=== PATIENT | male | born 1965 | race Caucasian/White ===

== ENCOUNTER 2021-03-18 08:49 | Emergency (ER) | payer MEDICAID, SELFPAY ==
[2021-03-18 08:54] VITALS: BP 107/72; PULSE 101; RESP 15; TEMP 36.8; O2SAT 96
--- NOTE | 2021-03-18 08:54 | ED.GENADUL_ITS ---
Discharge Plan Disposition Patient Disposition: HOME Condition: Stable Discharge Details Clinical Impression: Chest wall injury Primary Care Provider: Brenda,Local ED Provider: Gilberto Ma Home Meds and New Rx's Prescriptions: New lidocaine [Lidoderm] 5 % adhesive patch,medicated 1 patch topical DAILY Qty: 1 RF: 0 Discharge Instructions Instructions: Chest Wall Pain (ED) Additional Instructions: X-ray is unremarkable for obvious rib fracture or pneumothorax. Over-the-co unter Tylenol and/or Motrin as directed for discomfort. Lidoderm patches as directed. Cool and/or warm compresses every 2 hours for 20 minutes. Gentle stretching as tolerated. Be sure to use incentive spirometer as directed. Please watch for new or worsening symptoms and return to the ER for any concerns. I have placed you on the care management list, they should be contacting you to help you establish a local primary care provider. Medical Decision Making 55-year-old gentleman who denies any significant past sickle history presents fo r right lateral rib pain. He does not have a primary care provider, will be placed on the care management list to help expedite outpatient primary care. In triage his heart rate was 101 but during my evaluation his heart rate was 92. Blood pressure 107/72, O2 sats 96% on room air. Clinically he appears well, nontoxic, no respiratory distress. Anterior chest, abdomen, back all unremarkable. Given his injury, likely diagnosis of rib contusion and/or fracture. Given his presentation extremely small suspicion of pneumothorax and/or intra-abdominal process. X-ray of right ribs and chest obtained, reviewed by me and confirmed by radiology as no acute pulmonary findings. Unremarkable right ribs. Discussed x-ray with patient. He is aware that he is being placed on the care management list to help expedite outpatient primary care follow-up. Repeat blood pressure is 140/91, repeat pulse is 89. Patient appears well, nontoxic, no distress, speaks in full sentences. Discussed treatment options. Discussed importance of alternating between Tylenol and/or Motrin, gentle stretching, cool compresses, teaching with incentive spirometry was given. A single Lidoderm patch was applied here in the ER and I have written a prescription of the same for him. Patient is agreeable to this plan and has no additional questions or concerns upon discharge. HPI General Mode of arrival: ambulatory . Date/Time Provider Initiated Documentation: 03/18/21 08:54 . Limitations to Documentation: no limitations . Information obtained by: patient . HPI Narrative: This is a 55-year-old gentleman, denies any significant past medical history. He reports that he recently moved here from [facility] and has not established any primary care in the area. He does smoke cigarettes daily. He reports that last afternoon around 4 PM he was sitting on a stool, slipped rolling off to his right side. During the fall he struck his right lateral ribs on the edge of a safe. Patient reports moderate pain at rest, worse pain with movement, deep breathing, turning or bending. He denies any other injury. He denies striking his head, LOC, headache or neck pain. He denies any anterior chest pain, cough, shortness of breath abdominal pain, nausea, vomiting, change in bowel or bladder function. He denies any numbness, tingling, weakness. Pain does not radiate anywhere. He denies specifically any hematuria or incontinence. He has not taken any medication for his symptoms. Related Data Home Medications Medication Instructions Recorded Confirmed lidocaine [Lidoderm] 1 patch TOPICAL DAILY #1 ea 03/18/21 Previous Rx's Medication Instructions Recorded lidocaine [Lidoderm] 1 patch TOPICAL DAILY #1 ea 03/18/21 Allergies Allergy/AdvReac Type Severity Reaction Status Date / Time No Known Allergies Allergy Unverified 03/18/21 09:01 Review of Systems Constitutional Constitutional: Denies headache(s) Eyes Eyes: Denies change in vision ENT Ears, Nose, Mouth, and Throat: Denies headache(s) and Denies neck pain Cardiovascular Cardiovascular: Reports chest pain (Right lateral chest wall) and Denies dyspnea Respiratory Respiratory: Denies cough and Denies dyspnea Gastrointestinal Gastrointestinal: Denies abdominal pain, Denies nausea and Denies vomiting Genitourinary Genitourinary: Denies hematuria Musculoskeletal Musculoskeletal: Denies back pain, Denies neck pain, Denies numbness and Denies tingling Integumentary/Breasts Skin/Breast: Denies erythema Neurologic Neurologic: Denies headache(s), Denies numbness and Denies tingling [facility] Social History Smoking/Tobacco Use Status: Current every day Tobacco Type: cigarettes Smoking risk assessment performed?: Yes Drug use: Never Do you feel safe at home: Yes Do you feel safe in your relationship?: Yes Exam Const General: cooperative, healthy appearing, comfortable and no acute distress Orientation: alert, awake and oriented x3 HENMT Head: normal to inspection, normocephalic and atraumatic Eyes General: appearance normal, both eyes and all related structures Conjunctivae: conjunctivae normal Neck Neck: normal visual inspection, trachea midline, supple and nontender Chest Chest: normal inspection of the chest and tenderness Chest/axillae images: 1. Diffuse right lateral chest wall discomfort without any obvious crepitus or bony point tenderness. There is no ecchymosis, erythema, obvious deformity, break of the skin. Resp Effort & Inspection: normal respiratory effort and able to speak in complete sentences Auscultation: clear to auscultation bilaterally Cardio Rate: regular rate (92) Rhythm: regular rhythm GI Inspection: obesity Palpation: soft and nontender Back/Spine/Pelvis Back: no CVA tenderness and No back tenderness Skin General skin exam: no rashes or lesions noted Neuro General: patient alert, patient awake, moves all extremities and no focal motor deficits Cognition: normal cognition Speech: speech normal Gait: normal gait Motor: muscle tone normal throughout Sensory Exam: no sensory deficits noted Extrem General: normal to inspection and full ROM Psych Appearance: grossly normal Mental Status: mental status grossly normal
--- NOTE | 2021-03-18 09:15 | DI.RAD_ITS ---
Exam(s) XR RIBS RT W PA LAT CHEST EXAM: XR RIBS RT W PA LAT CHEST CLINICAL HISTORY: fall, R rib injury TECHNIQUE: 2D digital imaging was performed. COMPARISON: No exams were available for comparison FINDINGS: MEDIASTINUM: Normal. HEART: Normal. PULMONARY VASCULATURE: Normal. LUNGS: Clear. PLEURAL SPACE: No pleural effusion or pneumothorax. BONE:Normal. RIGHT RIBS: Normal. OTHER FINDINGS:There are surgical clips in the right upper quadrant of the abdomen. IMPRESSION: 1. No acute pulmonary findings. 2. Unremarkable right ribs. DATA REPOSITORY: RADIATION DOSE DELIVERED:
[2021-03-18] MEDS: Lidocaine 5% Patch 1 PATCH TP (10:44)
[2021-03-18 10:51] VITALS: BP 140/91; PULSE 89; RESP 20; TEMP 36.6; O2SAT 97
--- NOTE | 2021-03-18 10:53 | NUR.NOTE ---
Nursing Note: Referral given to Care Management to establish care/needs ongoing medication renewal with PCP. Shani Green
--- NOTE | 2021-03-20 13:57 | CMPROGNOTE_ITS ---
- If Service Date Differs Date of service: 03/20/21 Time of Service: 13:57 Care Management Progress Note Nick is seen in the ED for a chest wall injury. At the request of ED provider, CM coordinates a referral to ANTHONY Aguilera, of [facility], on-call provider, to assist Nick in obtaining a follow up appointment and in establishing care with a PCP.
== END 2021-03-18 10:51 | disposition home or self-care (01) ==
PROVIDERS: Emergency Provider Physician Assistant
DX: S29.8XXA Other specified injuries of thorax, initial encounter (principal); W22.8XXA Striking against or struck by other objects, initial encounter
CPT/HCPCS: 99283; 71046; 71100

== ENCOUNTER 2021-05-22 15:45 | Outpatient (REF) | payer MEDICAID, SELFPAY ==
[2021-05-22 16:30] LABS: Abs Immature Grans 0.02 10^3/uL (0.0-0.06); Absolute Basophil Count 0.03 10^3/uL (0.0-0.2); Absolute Eosinophil Count 0.26 10^3/uL (0.0-0.7); Absolute Lymphocyte Count 1.44 10^3/uL (1.2-3.4); Absolute Monocyte Count 0.37 10^3/uL (0.1-0.8); Absolute Neutrophil Count 2.95 10^3/uL (1.2-6.7); Basophils % 0.6; Eosinophils % 5.1; HCT 41.7 % (40.0-50.0); HGB 13.3 g/dL (13.5-17.5); Immature Grans % 0.4; Lymphocytes % 28.4; MCH 34.4 pg (27.0-33.0); MCHC 31.9 % (32.0-36.0); MCV 107.8 fL (80-95); MPV 13.7 fL (8.0-11.0); Monocytes % 7.3; Neutrophils % 58.2; Nucleated RBC 0 %; Platelet Count 133 10^3/uL (130-400); RBC 3.87 10^6/uL (4.36-5.78); RDW 12.5 % (11.8-14.1); RDW-SD 49.5 fL; WBC 5.07 10^3/uL (4.4-10.8)
[2021-05-22 16:47] LABS: Diff Comment RBC Morph Reviewed; Macrocytosis 1+
[2021-05-22 18:26] LABS: ALT 81 U/L (16-63); AST 42 U/L (15-37); Albumin 4.5 g/dL (3.4-5.0); Alkaline Phosphatase 65 U/L (46-116); Anion Gap 9.7 mmol/L (3-11); BUN 16 mg/dL (7-18); Bilirubin, Total 0.3 mg/dL (0.2-1.0); CO2 22.3 mmol/L (21.0-32.0); CREATININE 0.9 mg/dL (0.70-1.30); Calcium 9.8 mg/dL (8.5-10.1); Calculated LDL 69 mg/dL (<100); Chloride 104 mmol/L (98-107); Cholesterol 128 mg/dL (<200); Glucose 108 mg/dL (74-106); HDL Cholesterol 41 mg/dL (40-60); Potassium 4.2 mmol/L (3.5-5.1); Sodium 136 mmol/L (136-145); Total Protein 8.1 g/dL (6.4-8.2); Triglyceride 94 mg/dL (<150); Vitamin B12 228 pg/mL (193-986)
[2021-05-22 19:28] LABS: Bilirubin, Direct 0.2 mg/dL (0.0-0.2)
[2021-05-27 09:21] LABS: Methylmalonic Acid 0.23 nmol/mL (<=0.40)
== END 2021-05-22 15:46 | disposition home or self-care (01) ==
LOC: NCHCN 15:45
PROVIDERS: Visit Provider Physician Assistant
DX: G60.9 Hereditary and idiopathic neuropathy, unspecified (principal); E66.9 Obesity, unspecified; F10.20 Alcohol dependence, uncomplicated; F17.200 Nicotine dependence, unspecified, uncomplicated; K42.9 Umbilical hernia without obstruction or gangrene
CPT/HCPCS: 80048; 80061; 80076; 80186; 82607; 85025

== ENCOUNTER 2021-07-01 16:06 | Outpatient (REF) | payer MEDICAID, SELFPAY ==
[2021-07-01 20:40] LABS: FREE T4 0.58 ng/dL (0.76-1.46); TSH 8.48 uIU/mL (0.36-3.74)
== END 2021-07-01 16:07 | disposition home or self-care (01) ==
LOC: NCHCN 16:06
PROVIDERS: Visit Provider Physician Assistant
DX: E03.9 Hypothyroidism, unspecified (principal)
CPT/HCPCS: 84439; 84443

== ENCOUNTER 2021-07-14 02:02 | Outpatient (CLI) | payer MEDICAID, SELFPAY ==
--- NOTE | 2021-07-14 | DI.CTLCSR_ITS ---
Exam(s) CT CHEST LUNG CANCER SCREEN EXAM: CT CHEST LUNG CANCER SCREEN CLINICAL HISTORY: SCREENING FOR LUNG CA,CURRENT SMOKER,F17.200 TECHNIQUE: Imaging Protocol: Axial computed tomography images with coronal and sagittal reformatted images were created and reviewed COMPARISON: CR XR RIBS RT W PA LAT CHEST from 03/18/2021 CR XR RIBS RT W PA LAT CHEST from 03/18/2021 FINDINGS: Tracheobronchial tree: Patent where visualized. Mediastinum and Dia: No dominant adenopathy or fluid collection. Pulmonary parenchyma: No consolidation or dominant measurable mass. No architectural distortion. Lung Nodules: None. Pleura: No effusion or pneumothorax. Heart: The heart is not dilated. Mild coronary artery calcifications are seen. Aorta: Thoracic aorta non-dilated.Mild calcification Upper abdomen: Status post cholecystectomy. Bones: Unremarkable for age. Soft Tissues: Unremarkable. IMPRESSION: Normal low dose CT lung screening Lung RADS Cat 1 - Negative: No nodules and definitely benign nodules Lung-RADS 1.0 CATEGORIES: Category 0 - Prior chest CT exam(s) being located for comparison. Category 1 - Annual screening in 12 months. No nodules or definitely benign nodules. Category 2 - Annual screening in 12 months. Benign appearance. Nodules with low likelihood of becomin g active cancer. Category 3 - 6-month follow-up. Probably benign. Short-term follow-up suggested. Nodules with low lik elihood of becoming active cancer. Category 4A - 3-month follow-up and CT/PET if >8 mm in size. Suspicious finding. Findings which requi re additional testing. Category 4B - Findings which require additional testing and tissue sampling. Modifier S- Potentially clinically significant findings (non lung cancer) RADIATION DOSE DELIVERED: 76.37mGy.cm Total DLP CTDIvol DATA REPOSITORY: All CT scans at this facility are submitted to the National Radiology Data Registry (NRDR) Dose Index Registry (DIR) with the [employer] (ACR). RADIATION OPTIMIZATION: All CT scans at this facility use at least one of these dose optimization te chniques: automated exposure control; mA and/or kV adjustment per patient size (includes targeted exa ms where dose is matched to clinical indication); or iterative reconstruction.
== END 2021-07-14 02:22 ==
PROVIDERS: PCP Physician Assistant; Visit Provider Physician Assistant
DX: Z12.2 Encounter for screening for malignant neoplasm of respiratory organs (principal); F17.210 Nicotine dependence, cigarettes, uncomplicated
CPT/HCPCS: 71271

== ENCOUNTER 2021-10-29 11:56 | Outpatient (REF) | payer MEDICAID, SELFPAY ==
[2021-10-29 16:01] LABS: ALT 91 U/L (16-63); AST 40 U/L (15-37); Albumin 4.5 g/dL (3.4-5.0); Alkaline Phosphatase 51 U/L (46-116); Bilirubin, Direct 0.1 mg/dL (0.0-0.2); Bilirubin, Total 0.4 mg/dL (0.2-1.0); TSH 5.51 uIU/mL (0.36-3.74)
== END 2021-10-29 11:57 | disposition home or self-care (01) ==
LOC: NCHCN 11:56
PROVIDERS: PCP Physician Assistant; Visit Provider Physician Assistant
DX: F10.20 Alcohol dependence, uncomplicated (principal); E03.9 Hypothyroidism, unspecified
CPT/HCPCS: 80076; 84443

== ENCOUNTER 2022-06-30 12:38 | Emergency (ER) | payer MEDICAID, SELFPAY ==
[2022-06-30 12:54] VITALS: BP 135/74; PULSE 106; RESP 18; TEMP 36.8; O2SAT 97
[2022-06-30] MEDS: Buprenorphine/Naloxone 8 mg/2 mg FILM 1 EACH SL ×2 (13:21→14:10)
--- NOTE | 2022-06-30 14:04 | W.ED.GENAD ---
Discharge Plan Disposition Patient Disposition: HOME Condition: Stable Discharge Details Clinical Impression: Opiate withdrawal Primary Care Provider: Ross Larson ED Provider: Cinthya Crane Home Meds and New Rx's Prescriptions: New ondansetron HCl 4 mg tablet 4 mg PO Q8H Qty: 10 0RF Continued levothyroxine [Synthroid] 75 mcg tablet 75 mcg PO DAILY trazodone 50 mg tablet 50 mg PO QHS PRN varenicline 0.5 mg tablet 0.5 mg PO DAILY Rx Instructions: administer on days 1, 2, and 3 of therapy varenicline 1 mg tablet 1 mg PO BID Discharge Instructions Additional Instructions: You have an appointment with the Suboxone clinic tomorrow morning, please go to your appointment Do not drive after taking your Suboxone, you received a high dose You may take Zofran as needed for nausea Take ibuprofen and Tylenol for pain Do not use any oxycodone while taking this medication as I will put you into withdrawals if you are symptomatically improved Please return earlier should you have new or worsening complaints Referrals: Ross Larson [Primary Care Provider] - 1 day Discharge Data Discharge Date/Time-TO BE ENTERED AT DEPARTURE: 06/30/22 14:18 Medical Decision Making pt is feeling mild improvement after suboxone, administered two 8 mg doses in ED [facility] has set up appt for tomorrow for suboxone pt alert and oriented and feels comfortable with discharge home denies si/hi Medical Records Medical records reviewed: Yes I reviewed the patient's medical records. HPI General Date/Time Provider Initiated Documentation: 06/30/22 13:14. HPI Narrative: This 56-year-old male with history of alcohol dependence, polysubstance abuse presents with report of withdrawal from opiates. He states he takes approximately 300 mg of oxycodone daily. He advised that on the street reportedly. He denies any IV drug use or cocaine use. He denies any chest pain or shortness of breath. He denies any dizziness or weakness. He feels nauseous and has been having diarrhea. Denies any abdominal pain. Denies any IV drug abuse. His last dose of oxycodone was on Wednesday midday. He denies any suicidal or homicidal ideation. Related Data Home Medications Medication Instructions Recorded Confirmed levothyroxine 75 mcg tablet 75 mcg PO DAILY 11/06/21 06/30/22 (Synthroid) trazodone 50 mg tablet 50 mg PO QHS PRN 11/06/21 varenicline 0.5 mg tablet 0.5 mg PO DAILY 11/06/21 varenicline 1 mg tablet 1 mg PO BID 11/06/21 ondansetron HCl 4 mg tablet 4 mg PO Q8H #10 tabs 06/30/22 Previous Rx's Medication Instructions Recorded ondansetron HCl 4 mg tablet 4 mg PO Q8H #10 tabs 06/30/22 Allergies Allergy/AdvReac Type Severity Reaction Status Date / Time No Known Allergies Allergy Verified 06/30/22 12:58 General Stated Complaint: DrugWithdr/MAT SPENCER: 3 Review of Systems All systems reviewed & are unremarkable except as noted in HPI and below PFSH All Active Problems (Updated 06/30/22 @ 14:10 by ALMA Fuller) Opiate withdrawal (Acute) Obesity (Chronic) Peripheral neuropathy (Acute) Nicotine dependence (Acute) Alcohol dependence (Acute) Screening for colon cancer (Acute) Medical History (Updated 06/30/22 @ 14:10 by ALMA Fuller) Bursitis, knee Chest wall injury Fatty liver Hypothyroid Social History Smoking/Tobacco Use Status: Current every day Tobacco Type: cigarettes Smoking risk assessment performed?: Yes Alcohol Intake: former Drug use: Current Sobriety Substance use type: painkillers Details: pt was taking percocet 30s, 10-12 pills a day, stopped taking them 2 days ago. Do you feel safe at home: Yes Do you feel safe in your relationship?: Yes Exam Const General: cooperative, comfortable and no acute distress Eyes Pupils: PERRL Resp Effort & Inspection: normal respiratory effort Auscultation: clear to auscultation bilaterally Cardio Rate: regular rate Rhythm: regular rhythm GI Inspection: normal to inspection Skin General skin exam: no rashes or lesions noted Neuro General: patient alert and patient oriented x3 Psych Appearance: well kempt Thought Content: suicidality Course Vital Signs Vital signs: Vital Signs Temperature 36.8 C 06/30/22 12:54 Pulse 106 H 06/30/22 12:54 Respiratory Rate 18 06/30/22 12:54 Blood Pressure 135/74 06/30/22 12:54 Pulse Oximetry 97 06/30/22 12:54 Temperature 36.8 C 06/30/22 12:54 Pulse 106 H 06/30/22 12:54 Respiratory Rate 18 06/30/22 12:54 Respiratory Effort 06/30/22 12:59 Respiratory Pattern Normal 06/30/22 12:59 Blood Pressure 135/74 06/30/22 12:54 Pulse Oximetry 97 06/30/22 12:54
[2022-06-30 14:11] VITALS: BP 146/102; PULSE 85; RESP 16; TEMP 37.1; O2SAT 96
== END 2022-06-30 14:18 | disposition home or self-care (01) ==
PROVIDERS: Emergency Provider Physician Assistant; PCP Physician Assistant
DX: F11.23 Opioid dependence with withdrawal (principal); F17.210 Nicotine dependence, cigarettes, uncomplicated
CPT/HCPCS: 99283; 99284

== ENCOUNTER → 2022-08-19 02:26 | Outpatient (CLI) | payer MEDICAID, SELFPAY ==
--- NOTE | 2022-08-19 06:15 | DI.US_ITS ---
Exam(s) US ABDOMEN EXAM: US ABDOMEN CLINICAL HISTORY: elevated LFT/hx of ETOH abuse,fatty liver,k76.0,r79.89,obesity TECHNIQUE: Ultrasound abdomen performed using standard protocol. COMPARISON: No exams were available for comparison FINDINGS: ABDOMINAL AORTA AND IVC: Visualized portions normal caliber. PANCREAS: Normal where visualized. LIVER: The liver is of increased echogenicity suggestive of hepatic steatosis. Hepatopedal flow in t he Portal Vein. The liver measures 17.3 cm long. GALLBLADDER:Status post cholecystectomy. BILIARY SYSTEM: Common bile duct measures 7.6 mm. No intrahepatic biliary ductal dilation. KIDNEYS: Kidneys are symmetric in size. No evidence of renal calculi. No evidence of hydronephrosis. No renal mass or cyst identified. SPLEEN: Not enlarged. ASCITES: None seen. IMPRESSION: Hepatic steatosis and mild hepatomegaly. DATA REPOSITORY:
== END ==
PROVIDERS: PCP Physician Assistant; Visit Provider Surgery
DX: E66.9 Obesity, unspecified (principal); F10.10 Alcohol abuse, uncomplicated; K76.0 Fatty (change of) liver, not elsewhere classified; R79.89 Other specified abnormal findings of blood chemistry; Y90.9 Presence of alcohol in blood, level not specified
CPT/HCPCS: 76700

== ENCOUNTER 2022-09-08 15:41 | Outpatient (REF) | payer MEDICAID, SELFPAY ==
[2022-09-08 16:45] LABS: ALT 44 U/L (16-63); AST 23 U/L (15-37); Albumin 4.1 g/dL (3.4-5.0); Alkaline Phosphatase 72 U/L (46-116); Anion Gap 9.5 mmol/L (3-11); BUN 20 mg/dL (7-18); Bilirubin, Total 0.3 mg/dL (0.2-1.0); CO2 26.5 mmol/L (21.0-32.0); Calculated LDL 93 mg/dL (<100); Chloride 103 mmol/L (98-107); Cholesterol 155 mg/dL (<200); Estimated GFR 87.24 (mL/min/1.73m2); Glucose 95 mg/dL (74-106); HDL Cholesterol 43 mg/dL (40-60); Potassium 4.5 mmol/L (3.5-5.1); Sodium 139 mmol/L (136-145); TSH 7.02 uIU/mL (0.36-3.74); Total Protein 7.4 g/dL (6.4-8.2); Triglyceride 99 mg/dL (<150)
[2022-09-09 17:58] LABS: PSA, Screening 0.4 ng/mL (<=3.5)
== END 2022-09-08 15:42 | disposition home or self-care (01) ==
LOC: NCHCN 15:41
PROVIDERS: PCP Physician Assistant; Visit Provider Physician Assistant
DX: E03.9 Hypothyroidism, unspecified (principal); Z12.5 Encounter for screening for malignant neoplasm of prostate; K76.0 Fatty (change of) liver, not elsewhere classified
CPT/HCPCS: 80053; 80061; 84153; 84443

== ENCOUNTER 2023-02-05 12:48 | Outpatient (REF) | payer MEDICAID, SELFPAY ==
[2023-02-05 14:10] LABS: TSH 7.18 uIU/mL (0.36-3.74)
== END 2023-02-05 12:49 | disposition home or self-care (01) ==
LOC: NCHCN 12:48
PROVIDERS: PCP Physician Assistant; Visit Provider Physician Assistant
DX: E03.9 Hypothyroidism, unspecified (principal)
CPT/HCPCS: 84443

== ENCOUNTER 2023-03-05 00:14 | Outpatient (CLI) | payer MEDICAID, SELFPAY ==
--- NOTE | 2023-03-05 | DI.CTLCSR_ITS ---
Exam(s) CT CHEST LUNG CANCER SCREEN EXAM: CT CHEST LUNG CANCER SCREEN CLINICAL HISTORY: SCREENING FOR LUNG CA, SMOKER, F17.200. TECHNIQUE: Imaging Protocol: Low Dose Technique CONTRAST MATERIAL: None COMPARISON: CT CT CHEST LUNG CANCER SCREEN from 07/14/2021 FINDINGS: CHEST: LUNGS: There is now platelike atelectasis in the lingular segment the left lung.. No other significa nt left lung findings. In the right lower lobe there are mild increased subpleural markings posterio rly in the superior segment, benign appearance. No pleural effusions on either side.. MEDIASTINUM: There is no obvious hilar nor mediastinal adenopathy. CARDIAC: Heart size is normal. There is no pericardial effusion.Caliber of the thoracic aorta is wit hin normal limits. OTHER: Gallbladder surgically absent OSSEOUS: No significant osseous lesions.. IMPRESSION: 1. Benign-appearing increased markings bilaterally. No ominous nodules. 2. No effusions nor intrathoracic adenopathy 3. Lung RADS Cat 2 - Benign Appearance / Behavior: Nodules with a very low likelihood of becoming a c linically active cancer due to size or lack of growth Lung-RADS 1.0 CATEGORIES: Category 0 - Prior chest CT exam(s) being located for comparison. Category 1 - Annual screening in 12 months. No nodules or definitely benign nodules. Category 2 - Annual screening in 12 months. Benign appearance. Nodules with low likelihood of becomin g active cancer. Category 3 - 6-month follow-up. Probably benign. Short-term follow-up suggested. Nodules with low lik elihood of becoming active cancer. Category 4A - 3-month follow-up and CT/PET if >8 mm in size. Suspicious finding. Findings which requi re additional testing. Category 4B - Findings which require additional testing and tissue sampling. Category 4X - Category 3 or 4 nodules with additional features or imaging findings that increases the suspicion of malignancy. Modifier S- Potentially clinically significant findings (non lung cancer) RADIATION DOSE DELIVERED: 74.45mGy.cm Total DLP DATA REPOSITORY: All CT scans at this facility are submitted to the National Radiology Data Registry (NRDR) Dose Index Registry (DIR) with the [employer] (ACR). RADIATION OPTIMIZATION: All CT scans at this facility use at least one of these dose optimization te chniques: automated exposure control; mA and/or kV adjustment per patient size (includes targeted exa ms where dose is matched to clinical indication); or iterative reconstruction.
== END 2023-03-05 00:34 ==
LOC: DI 00:14
PROVIDERS: PCP Physician Assistant; Visit Provider Physician Assistant
DX: Z12.2 Encounter for screening for malignant neoplasm of respiratory organs (principal); F17.200 Nicotine dependence, unspecified, uncomplicated; R91.8 Other nonspecific abnormal finding of lung field
CPT/HCPCS: 71271

== ENCOUNTER 2023-08-06 18:26 | Outpatient (REF) | payer MEDICAID, SELFPAY ==
[2023-08-06 15:27] LABS: TSH 3.72 uIU/mL (0.36-3.74)
== END 2023-08-06 18:27 | disposition home or self-care (01) ==
LOC: NCHCN 18:26
PROVIDERS: PCP Physician Assistant; Visit Provider Physician Assistant
DX: E03.9 Hypothyroidism, unspecified (principal)
CPT/HCPCS: 84443

== ENCOUNTER 2024-01-21 09:26 | Outpatient (REF) | payer MEDICAID, SELFPAY ==
[2024-01-21 15:59] LABS: ALT 75 U/L (16-63); AST 29 U/L (15-37); Albumin 4.2 g/dL (3.4-5.0); Alkaline Phosphatase 41 U/L (46-116); Anion Gap 10.1 mmol/L (3-11); BUN 14 mg/dL (7-18); Bilirubin, Total 0.6 mg/dL (0.2-1.0); CO2 25.9 mmol/L (21.0-32.0); CREATININE 0.9 mg/dL (0.70-1.30); Calcium 8.5 mg/dL (8.5-10.1); Calculated LDL 78 mg/dL (<100); Chloride 106 mmol/L (98-107); Cholesterol 153 mg/dL (<200); Estimated GFR 98.38 (mL/min/1.73m2); Glucose 106 mg/dL (74-106); HDL Cholesterol 44 mg/dL (40-60); Potassium 4.5 mmol/L (3.5-5.1); Sodium 142 mmol/L (136-145); TSH 0.71 uIU/Ml (0.36-3.74); Total Protein 7.2 g/dL (6.4-8.2); Triglyceride 156 mg/dL (<150)
[2024-01-21 23:37] LABS: PSA, Screening 0.4 ng/mL (<=3.5)
== END 2024-01-21 09:27 | disposition home or self-care (01) ==
LOC: NCHCN 09:26
PROVIDERS: PCP Physician Assistant; Visit Provider Physician Assistant
DX: E03.9 Hypothyroidism, unspecified (principal); Z13.220 Encounter for screening for lipoid disorders; Z12.5 Encounter for screening for malignant neoplasm of prostate
CPT/HCPCS: 80053; 80061; 84153; 84443

== ENCOUNTER → 2024-03-07 00:05 | Outpatient (CLI) | payer MEDICAID, SELFPAY ==
--- NOTE | 2024-03-07 | DI.CTLCSR_ITS ---
Exam(s) CT CHEST LUNG CANCER SCREEN EXAM: CT CHEST LUNG CANCER SCREEN CLINICAL HISTORY: Ex-smoker, Z87.891 TECHNIQUE: Imaging Protocol: Axial computed tomography images with coronal and sagittal reformatted images were created and reviewed COMPARISON: CT CT CHEST LUNG CANCER SCREEN from 03/05/2023 FINDINGS: Tracheobronchial tree: Patent where visualized. No bronchiectasis. Pulmonary parenchyma: There is a small infiltrate seen in the posterior aspect of the right upper lob e. This may represent atelectasis or developing pneumonia. Please correlate clinically. The lungs are otherwise clear. No architectural distortion. Lung Nodules: None. Mediastinum and Dia: No dominant adenopathy or fluid collection. The esophagus is unremarkable. Thyroid gland: Unremarkable. Lymph nodes: Unremarkable. Pleura: No effusion or pneumothorax. Heart: Upper limits of normal in size. Mild coronary artery calcification. No pericardial effusion. Aorta: Thoracic aorta non-dilated.Mild atherosclerotic calcification. Upper abdomen: Status post cholecystectomy. Examination of the upper abdomen is limited due to lack of IV contrast. Soft Tissues: Unremarkable. Bones: Within normal limits. IMPRESSION: 1. No pulmonary nodules. 2. Small infiltrate in the posterior aspect of the right upper lobe. This may represent atelectasis, scarring or developing pneumonia. Please correlate clinically. Lung RADS Cat 1 - Negative: No nodules and definitely benign nodules Lung-RADS 1.0 CATEGORIES: Category 0 - Prior chest CT exam(s) being located for comparison. Category 1 - Annual screening in 12 months. No nodules or definitely benign nodules. Category 2 - Annual screening in 12 months. Benign appearance. Nodules with low likelihood of becomin g active cancer. Category 3 - 6-month follow-up. Probably benign. Short-term follow-up suggested. Nodules with low lik elihood of becoming active cancer. Category 4A - 3-month follow-up and CT/PET if >8 mm in size. Suspicious finding. Findings which requi re additional testing. Category 4B - Findings which require additional testing and tissue sampling. Suspicious finding. Category 4X - Category 3 or 4 nodules with additional features or imaging findings that increases the suspicion of malignancy. Modifier S- Potentially clinically significant finding. (Non lung cancer) RADIATION DOSE DELIVERED: 95.55mGy.cm Total DLP 95.55mGy.cmTotal DLP DATA REPOSITORY: All CT scans at this facility are submitted to the National Radiology Data Registry (NRDR) Dose Index Registry (DIR) with the [employer] (ACR). RADIATION OPTIMIZATION: All CT scans at this facility use at least one of these dose optimization te chniques: automated exposure control; mA and/or kV adjustment per patient size (includes targeted exa ms where dose is matched to clinical indication); or iterative reconstruction.
== END ==
PROVIDERS: PCP Physician Assistant; Visit Provider Physician Assistant
DX: Z12.2 Encounter for screening for malignant neoplasm of respiratory organs (principal); Z87.891 Personal history of nicotine dependence
CPT/HCPCS: 71271

== ENCOUNTER 2025-01-15 10:35 | Outpatient (REF) | payer BC, SELFPAY ==
[2025-01-15 16:13] LABS: ALT 78 U/L (16-63); AST 36 U/L (15-37); Albumin 3.9 g/dL (3.4-5.0); Alkaline Phosphatase 45 U/L (46-116); Anion Gap 10.2 mmol/L (3-11); BUN 16 mg/dL (7-18); Bilirubin, Total 0.5 mg/dL (0.2-1.0); CO2 24.8 mmol/L (21.0-32.0); CREATININE 0.8 mg/dL (0.70-1.30); Calcium 8.9 mg/dL (8.5-10.1); Calculated LDL 71 mg/dL (<100); Chloride 109 mmol/L (98-107); Cholesterol 145 mg/dL (<200); Estimated GFR 101.32 (mL/min/1.73m2); Glucose 106 mg/dL (74-106); HDL Cholesterol 50 mg/dL (>or=40); Potassium 4.4 mmol/L (3.5-5.1); Sodium 144 mmol/L (136-145); TSH < 0.01 uIU/mL (0.36-3.74); Total Protein 6.8 g/dL (6.4-8.2); Triglyceride 120 mg/dL (<150)
[2025-01-15 22:45] LABS: PSA, Screening 0.5 ng/mL (<=4.5)
== END 2025-01-15 10:36 | disposition home or self-care (01) ==
LOC: NCHCN 10:35
PROVIDERS: PCP Physician Assistant; Visit Provider Physician Assistant
DX: Z12.5 Encounter for screening for malignant neoplasm of prostate (principal); E03.9 Hypothyroidism, unspecified; K76.0 Fatty (change of) liver, not elsewhere classified
CPT/HCPCS: 80053; 80061; 84153; 84443

== ENCOUNTER 2025-06-18 13:45 | Outpatient (REF) | payer BC, SELFPAY ==
[2025-06-18 16:19] LABS: TSH 0.01 uIU/mL (0.36-3.74)
== END 2025-06-18 13:46 | disposition home or self-care (01) ==
LOC: NCHCN 13:45
PROVIDERS: PCP Physician Assistant; Visit Provider Physician Assistant
DX: E03.9 Hypothyroidism, unspecified (principal)
CPT/HCPCS: 84443